=== PATIENT | male | born 1970 | race Caucasian/White ===

== ENCOUNTER 2020-11-03 15:10 | Emergency (ER) | payer OTHER ==
[2020-11-03 15:18] VITALS: BMI 38.3
[2020-11-03 17:12] LABS: BASO % 1.1 % (0-2.0); HEMATOCRIT 39.4 % (35.4-49); HEMOGLOBIN 13.6 GM/dL (11.7-16.9); LYMPH % 16.6 % (8-40); MCH 31.5 pg (25.7-33.7); MCHC 34.5 g/dl (32.0-35.9); MEAN CELL VOLUME 91.4 fl (80-96); MEAN PLT VOLUME 7.8 fl (7.5-11.1); MONO % 7.2 % (3.8-10.2); NEUT % 75.1 % (42.8-82.8); PLATELET COUNT 265 K/MM3 (134-434); RBC 4.31 M/mm3 (4.00-5.60); RDW 15.1 % (11.9-15.9); WHITE BLOOD COUNT 8.8 K/mm3 (4.0-10.0)
[2020-11-03 17:28] LABS: CHLORIDE 106 mmol/L (98-107); SODIUM 140 mmol/L (136-145)
[2020-11-03 17:30] LABS: CALCIUM 8.5 mg/dL (8.5-10.1)
[2020-11-03 17:31] LABS: ALBUMIN 3.7 g/dl (3.4-5.0); ANION GAP 9 MMOL/L (8-16); BLOOD UREA NITROGEN 7.7 mg/dL (7-18); CO2 26 mmol/L (21-32); GLUCOSE,RANDOM 114 mg/dL (74-106)
[2020-11-03 17:34] LABS: CREATININE 0.6 mg/dL (0.55-1.3); SGOT/AST 18 U/L (15-37); SGPT/ALT 44 U/L (13-61)
[2020-11-03 17:35] LABS: BILIRUBIN,TOTAL 0.4 mg/dL (0.2-1); TOT PROT 7.2 g/dl (6.4-8.2)
[2020-11-03 17:36] LABS: ALK PHOS 50 U/L (45-117)
[2020-11-03 18:47] VITALS: BP 133/84; PULSE 94; TEMP 99.3
== END 2020-11-03 18:48 | disposition home or self-care (01) ==
LOC: JER 15:10
DX: R07.9 Chest pain, unspecified (principal); R06.02 Shortness of breath; Z03.818 Encounter for observation for suspected exposure to other biological agents ruled out
CPT/HCPCS: 36415; 71045-TC-FY; 80053; 82550; 82553; 84484; 85025; 87804; 93005; 93010; 99285-25; C9803; U0003